=== PATIENT | female | born 1995 ===

== ENCOUNTER 2020-08-25 21:27 | Outpatient (REF) | payer MEDICAID, SELFPAY ==
[2020-08-27 22:20] LABS: Chlamydia amplified RNA Negative (Negative); N gonorrhoeae amplified RNA Negative (Negative); Source CERVIX
== END 2020-08-25 21:47 ==
LOC: NCHCN 21:27
PROVIDERS: PCP Family Medicine; Visit Provider Family Medicine
DX: Z11.3 Encounter for screening for infections with a predominantly sexual mode of transmission (principal)
CPT/HCPCS: 87491; 87591

== ENCOUNTER 2020-09-04 18:13 | Outpatient (REF) | payer MEDICAID, SELFPAY ==
[2020-09-08 09:33] LABS: SARS-CoV-2 RNA Undetected (Undetected); SARS-CoV-2 Specimen Source Nasal
== END 2020-09-04 18:33 ==
LOC: NCHCN 18:13
PROVIDERS: PCP Family Medicine; Visit Provider Nurse Practitioner Community Health
DX: J06.9 Acute upper respiratory infection, unspecified (principal)
CPT/HCPCS: U0003

== ENCOUNTER 2021-02-17 17:47 | Outpatient (REF) | payer MEDICAID, SELFPAY ==
[2021-02-17 21:52] LABS: HCT 39.6 % (36.0-46.0); HGB 13.3 g/dL (11.2-15.7); MCH 30.3 pg (27.0-33.0); MCHC 33.6 % (32.0-36.0); MCV 90.2 fL (80-95); MPV 9.8 fL (8.0-11.0); Platelet Count 263 10^3/uL (130-400); RBC 4.39 10^6/uL (3.93-5.22); RDW 12.4 % (11.7-14.6); RDW-SD 41.3 fL
[2021-02-17 21:55] LABS: C-Reactive Protein 0.11 mg/dL (0.0-0.3)
== END 2021-02-17 17:48 | disposition home or self-care (01) ==
LOC: NCHCN 17:47
PROVIDERS: PCP Family Medicine; Visit Provider Nurse Practitioner Community Health
DX: R10.31 Right lower quadrant pain (principal)
CPT/HCPCS: 85027; 86140